=== PATIENT | male | born 1955 | race Caucasian/White ===

== ENCOUNTER 2023-03-21 06:49 | Day surgery (SDC) | payer MEDICARE ==
[2023-03-20 13:50] LABS: BASOPHILS # (AUTO) 0.08 K/uL (0.00-0.20); BASOPHILS % (AUTO) 1.1 % (0.0-5.0); EOSINOPHILS # (AUTO) 0.13 K/uL (0.00-0.70); EOSINOPHILS % (AUTO) 1.8 % (0.0-8.0); HEMATOCRIT 45.8 % (42-54); IMMATURE GRANULOCYTE ABSOLUTE 0.03 K/uL (0-1); LYMPHOCYTES # (AUTO) 1.8 K/uL (1.0-4.8); LYMPHOCYTES % (AUTO) 24.9 % (21.0-51.0); MEAN CORPUSCULAR HEMOGLOBIN 31.7 pg (27.0-33.0); MEAN CORPUSCULAR HGB CONC 33.6 g/dL (32.0-36.0); MEAN CORPUSCULAR VOLUME 94.2 fL (79-99); MONOCYTES # (AUTO) 0.6 K/uL (0.1-1.0); MONOCYTES % (AUTO) 8.7 % (3.0-13.0); NEUTROPHILS # (AUTO) 4.6 K/uL (1.8-7.7); NEUTROPHILS % (AUTO) 63.1 % (40.0-77.0); PLATELET COUNT (AUTO) 203 K/uL (130-400); RED BLOOD CELL COUNT(AUTO) 4.86 MIL/uL (4.50-6.20); RED CELL DISTRIBUTION WIDTH 13.4 % (11.0-15.5); WHITE BLOOD COUNT (AUTO) 7.3 K/uL (4.8-10.8)
[2023-03-20 13:52] VITALS: BP 140/85; PULSE 79; RESP 18
[2023-03-20 14:00] LABS: CREATININE 1.1 mg/dL (0.5-1.5); POTASSIUM 4.2 mmol/L (3.5-5.1)
[2023-03-20 14:10] LABS: INR 1.07 (0.85-1.15); PROTHROMBIN TIME 12.4 SEC (9.6-11.6)
[2023-03-20 14:44] LABS: B-TYPE NATRIURETIC PEPTIDE 70 pg/mL (0-100)
[2023-03-21] VITALS (17 sets, daily range): BP systolic 82–148; BP diastolic 53–109; PULSE 50–94; RESP 14–18
[~2023-03-21] VITALS: Ht 177.8 cm; Wt 100.1 kg
[~2023-03-21 06:49] MED LIST: AEC81 PO; AMLO-257 PO; APIX5TAB PO; ASCO100031 PO; CETI10TA57 PO; CYAN50009 SL; DRON400T7 PO; FENO145T26 PO; FLUT16H NASAL; LEVO100T12 PO; M-171CAP PO; METO-409 PO; MONT-39 PO; MULT-1367 PO; NAPH15DR69 OP; OMEG-227 PO; SIMV10TA97 PO; [UNRECOGNIZED DRUG - CODE] NS
[2023-03-21] MEDS ORDERED: 0.9%NACL 1000ML 1,000 ML IV ONE (08:25)
[2023-03-21] MEDS ORDERED: LIDOCAINE HCL 2% VISCOUS 15 ML UDCUP ONE (08:25)
[2023-03-21] MEDS ORDERED: MIDAZOLAM HCL 1 MG/ML 2ML VIAL ONE (08:31)
[2023-03-21] MEDS ORDERED: FENTANYL CITRATE PF 50 MCG/1 ML 2ML VIAL ONE (08:31)
[2023-03-21] MEDS ORDERED: PROPOFOL 10 MG/ML 20ML VIAL IV ONE (08:31)
== END 2023-03-21 10:30 | disposition home or self-care (01) ==
LOC: DAH 06:49 → EDSTATUS 08:00 → DAH 10:30
PROVIDERS: ATTEND Internal Medicine Interventional Cardiology
DX: I48.11 Longstanding persistent atrial fibrillation (principal); I34.0 Nonrheumatic mitral (valve) insufficiency; I49.3 Ventricular premature depolarization; I10 Essential (primary) hypertension; M79.609 Pain in unspecified limb; G60.8 Other hereditary and idiopathic neuropathies; E03.8 Other specified hypothyroidism; Z98.890 Other specified postprocedural states; Z79.01 Long term (current) use of anticoagulants; Z79.82 Long term (current) use of aspirin; Z79.890 Hormone replacement therapy
CPT/HCPCS: 71045; 80048; 83880; 85025; 85610; 85730; 36415; 92960; 93312; 93005 ×2; 93325; J3010; J7030; J2250; J2704; A4620; A4215; A4223; A4222; A4221; A4606; 99156; 99157; J3490

== ENCOUNTER → 2023-10-20 | Outpatient (CLI) | payer OTHER | END | disposition home or self-care (01) | LOC: RAH 10:39 | PROVIDERS: ATTEND Internal Medicine Interventional Cardiology | DX: Z13.6 Encounter for screening for cardiovascular disorders (principal) | CPT/HCPCS: 75571 ==